=== PATIENT | male | born 1990 | race African-American/Black ===

== ENCOUNTER 2018-10-19 04:00 | Emergency (ER) | payer SELFPAY ==
[2018-10-19] MEDS ORDERED: Lidocaine 1% w/Epinephrine 1:100K 20 ML VIAL ONE (07:00)
[2018-10-19] MEDS ORDERED: Bupivacaine 0.5% 10 ML VIAL ONE (07:00)
== END 2018-10-19 07:19 | disposition home or self-care (01) ==
LOC: ERS 04:00
DX: K03.2 Erosion of teeth (principal)
CPT/HCPCS: 64400; J2001; J3490

== ENCOUNTER 2020-10-10 22:43 | Emergency (ER) | payer SELFPAY ==
[2020-10-11] MEDS ORDERED: Naproxen 500 MG TAB ONE (01:24)
== END 2020-10-11 01:32 | disposition home or self-care (01) ==
LOC: ERS 22:43
DX: K03.81 Cracked tooth (principal); K02.9 Dental caries, unspecified
CPT/HCPCS: 99282